=== PATIENT | female | born 1930 | race African-American/Black ===

== ENCOUNTER 2017-08-11 22:15 | Emergency (ER) | payer MEDICARE, OTHER, MEDICAID ==
--- NOTE | 2017-08-11 22:34 | ER Document Report ---
ED Neuro Symptoms/Deficit - General Mode of Arrival: Medic Information source: Patient, Relative - family members, Emergency Med Personnel Notes: Patient is an 87 year old female presenting to the emergency department with stroke like symptoms that was onset at 21:30 this evening. Patient was doing laundry at home when her family noticed she had some slurred speech, left sided facial droop, and left sided weakness. Patient had difficulty ambulating as well. Patient was brought in via EMS and sent to radiology for a CT. Patient had a clean Devunity yesterday when she went to her PCP, Dr. Currie. Patient's last PO intake was 18:00 today. Patient denies any chest pain, shortness of breath, nausea, or headache. Patient denies any recent trauma, bleeding, surgery, or fall injury. Patient denies any history of stroke or MA. Patient has hypothyroidism, depression, and anxiety. Patient takes an Aspirin daily. Patient denies any history of an irregular heart beat and states that her heart is regular. Patient has no known drug allergies. TRAVEL OUTSIDE OF THE [place] IN LAST 30 DAYS: No - HPI Patient complains to provider of: Difficulty walking, Facial Droop, Speech Impairment, Weakness Onset: This evening - 21:30, Refer to HPI notes New weakness: LUE, LLE, RLE, L facial Decreased ability to stand/walk: Difficult Impaired speech/swallowing: Difficult Similar symptoms previously: No Recently seen / treated by doctor: Yes - Viajala on 08/10/2017 <JAI FAROOQ - Last Filed: 08/12/17 00:07> <CHAPITO CUELLAR - Last Filed: 08/12/17 00:13> - General Stated Complaint: STROKE LIKE SYMPTOMS Time Seen by Provider: 08/11/17 22:16 - Related Data Allergies/Adverse Reactions: No Known Allergies Allergy (Verified 04/25/13 15:16) Past Medical History - General Information source: Patient, Relative - family members, Emergency Med Personnel - Social History Smoking Status: Never Smoker Cigarette use (# per day): No Chew tobacco use (# tins/day): No Smoking Education Provided: No Frequency of alcohol use: None Drug Abuse: None Family History: None Patient has suicidal ideation: No Patient has homicidal ideation: No - Past Medical History Cardiac Medical History: Reports: Hx Hypertension Endocrine Medical History: Reports: Hx Hypothyroidism Musculoskeltal Medical History: Reports Hx Arthritis Psychiatric Medical History: Reports: Hx Anxiety, Hx Depression Surgical Hx: Negative - Immunizations Hx Diphtheria, Pertussis, Tetanus Vaccination: Yes <JAI FAROOQ - Last Filed: 08/12/17 00:07> Review of Systems - Review of Systems Constitutional: See HPI, Weakness EENT: See HPI, Other Cardiovascular: No symptoms reported. denies: Chest pain Respiratory: No symptoms reported. denies: Short of breath Gastrointestinal: No symptoms reported. denies: Abdominal pain, Nausea Genitourinary: No symptoms reported Female Genitourinary: No symptoms reported. denies: Musculoskeletal: See HPI Skin: No symptoms reported Hematologic/Lymphatic: No symptoms reported Neurological/Psychological: See HPI, Weakness, Gait changes, Speech impairment. denies: Headaches -: Yes All other systems reviewed and negative <JAI FAROOQ - Last Filed: 08/12/17 00:07> Physical Exam - Notes Notes: GENERAL: Alert, interacts well, small amount of difficulty following commands, commands had to be repeated multiple times. No acute distress. HEAD: Normocephalic, atraumatic. EYES: Pupils equal, round, and reactive to light. Extraocular movements intact. Appears to have difficulty seeing out of the lateral aspect of the left eye. ENT: Oral mucosa moist, tongue midline. NECK: Full range of motion. Supple. Trachea midline. LUNGS: Clear to auscultation bilaterally, no wheezes, rales, or rhonchi. No respiratory distress. HEART: Regular rate. Ectopic beats every 4th beat. No murmurs, gallops, or rubs. ABDOMEN: Soft, non-tender. Non-distended. Bowel sounds present in all 4 quadrants. EXTREMITIES: Moves all 4 extremities spontaneously. 2+ pitting edema to the lower extremities bilaterally, right is slightly greater than left. Radial and dorsalis pedis pulses 2/4 bilaterally. No cyanosis. Left-sided pronator drift. Upper extremity strength is 4/5 in the left arm and 5/5 in the right arm. Weakness in the lower extremities bilaterally, 2/5 in the left leg and 3/5 in the right leg. NEUROLOGICAL: Alert and oriented x3. Normal speech. Left sided facial droop. Left sided hemianopsia. NIHSS=9. PSYCH: Normal affect, normal mood. SKIN: Warm, dry, normal turgor. No rashes or lesions noted. <JAI FAROOQ - Last Filed: 08/12/17 00:07> - Vital signs Vitals: Resp Pulse Ox 21 H 99 08/11/17 22:29 08/11/17 22:29 <CHAPIOT CUELLAR - Last Filed: 08/12/17 00:13> Course - Re-evaluation Re-evalutation: 08/11/17 22:16 Patient was quickly evaluated once brought in through the trauma bay by EMS. She is sitting up in the stretcher and has no respiratory distress. Patient is stable for CT. 08/11/17 23:15 Family agrees with plan to administer TPA and transfer patient to [facility] ED. Patient and family are aware that there is a 6% risk of intracranial hemorrhage when given TPA 08/11/17 23:52 Re-evaluated patient at this time, patient is doing well and denies any headache. Patient has some slight improvement to her left upper extremity and slight improvement to her left sided facial droop since receiving TPA. - Laboratory Result Diagrams: 08/11/17 22:44 08/11/17 22:44 - Consults [facility] Time consulted: 22:53 Reason for consultation: 08/11/17 22:53 Contacted [facility] for possible transfer and recommendations for patient, they will contact neurology and call back. 08/11/17 22:59 Call from [facility] Neurology, spoke with Dr. Johnson about patient's symptoms and CT result. Dr. Johnson recommends giving TPA and transferring the patient to [facility] (ED to ED) for further workup and treatment. 08/11/17 23:04 Transferred to the ED and spoke with Dr. Amos about patient and plan to give TPA and then transfer. Dr. Amos accepts the patient for an ED to ED transfer. 08/11/17 23:[address] Lucio who is the attending in the MICU, he was made aware of the patient. <JAI FAROOQ - Last Filed: 08/12/17 00:07> - Re-evaluation Re-evalutation: 08/12/17 00:11 CBC shows anemia with hemoglobin 10.9, platelets normal, no leukocytosis, coags normal, CMP shows slightly elevated BUN at 26 otherwise unremarkable, CK elevated 176, cardiac enzymes otherwise still pending at time of transfer, head CT does not show any acute hemorrhage, chest x-ray shows possible retrocardiac infiltrate, this is not consistent with her clinical presentation. EKG is nonischemic. Discussed initially with family the possibility of giving TPA, they asked me to first consult with neurosurgery at [facility] for possible endovascular intervention , discussed with Dr. Johnson the interventionalist on-call who states that given the presentation I am describing it does not sound like this is a blood clot in a major vessel, would recommend initiating TPA prior to transfer, recommends transfer ER to ER, spoke with Dr. Amos from the emergency department, agrees to accept the patient is an ER to ER transfer after administration of TPA. Family is aware of the 6% risk of intracranial hemorrhage and risk of with TPA. Patient and family accept this risk and request to be given TPA. They also agree with transfer to [facility] after this for further investigation of possible endovascular intervention. I did also speak with Dr. Peralta from the MICU who is aware of this patient and that they will likely be transferred to the MICU after being seen in the emergency department at [facility]. Patient was rechecked approximately 2 minutes prior to the arrival of the transport crew, symptoms had improved slightly. No evidence of worsening, blood pressure was still well controlled on its own, no headache. Patient is stable for transport at this time. - Vital Signs Vital signs: Temp Pulse Resp BP Pulse Ox 97.3 F 62 20 140/85 H 98 08/12/17 00:07 08/12/17 00:01 08/12/17 00:01 08/12/17 00:01 08/12/17 00:01 - Laboratory Result Diagrams: 08/11/17 22:44 08/11/17 22:44 Laboratory results interpreted by me: 08/11/17 08/11/17 22:44 22:44 Hgb 10.9 L Hct 34.4 L MCV 74 L MCH 23.5 L MCHC 31.8 L RDW 14.5 H Seg Neutrophils % 30.0 L Monocytes % 18.2 H Eosinophils % 11.3 H Absolute Neutrophils 1.2 L Chloride 108 H BUN 26 H Est GFR (Non-Af Amer) 50 L AST 42 H Creatine Kinase 176 H - EKG Interpretation by Me Additional EKG results interpreted by me: 08/12/17 00:12 EKG shows sinus rhythm at a rate of 67, occasional PACs, left atrial abnormality , poor R-wave progression, no ST segment elevations or depressions, there are T- wave inversions noted in lead III which are nonspecific per my interpretation. <HARMANCHAPITO HERNANDES - Last Filed: 08/12/17 00:13> Critical Care Note - Critical Care Note Total time excluding time spent on procedures (mins): 55 <CHAPITO CUELLAR - Last Filed: 08/12/17 00:13> ED Alteplase Inc/Exc Criteria - Date/Time patient last known well: Date/Time: 08/11/2017 21:30 - Date/Time patient arrived in ED: _: 08/11/2017 22:16 - Inclusion Criteria: 1: Patient presented to ED within 3 hours of acute ischemic stroke symptom onset ? -: Yes 2: Did baseline CT exclude intracranial hemorrhage and/or other risk factors? -: Yes 3: Is the age of the patient 18 years of age or greater? -: Yes : If any of the above questions are answered "NO" then stop, patient is not a candidate for Alteplase, : If all of the above questions are answered "YES" then continue with Exclusion Criteria. - Exclusion Criteria: 1: Is there evidence of intracranial hemorrhage on baseline CT? -: No 2: Is there suspicion of subarachnoid hemorrhage (even if CT negative)? -: No 3: Is there a history of serious head trauma, recent previous stroke or MA within 3 months? -: No 4: Does the patient have a clinical presentation consistent with MA or post-MA pericarditis? -: No 5: Is there history of intracranial hemorrhage? -: No 6: On repeated measurement is Systolic BP greater than 185mmHg or Diastolic BP greater that 110 mmHg and is aggressive treatment needed to reduce blood pressure to these limits (e.g. constant infusion of an anti-hypertensive)? -: No 7: Did the patient awake with stroke symptoms? -: No 8: Has the patient had a lumbar puncture or an arterial puncture at a non- compressile site within 7 days? -: No 9: With in the last 14 days did the patient have surgery or major trauma? -: No 10: Is the patient or less than 2 weeks? -: No 11: Was there any active bleeding or acute trauma? -: No 12: Does the patient have intracranial neoplasm, arteriovenous malformation or aneurysm? -: No 13: Does the patient have abnormal glucose (less than 50 or greater than 400mg/ dl)? Record glucose in Comment. -: No - 92 14: Patient has rapidly improving symptoms at the time Alteplase is to be Administered. -: No - Re-checked at 23:22 15: Does the patient have any risks for bleeding, including but not limited to: a.: Current use of Coumadin with PT greater than 15 seconds or INR greater than 1.7. b.: Current use of Pradaxa (Dabigatran). c.: Heparin administereed within the past 48 hours and PTT elevated. d.: Platelet count less than 100,000/mm. e.: Major surgery or serious trauma within 14 days. f.: Gastrointestinal or gynecological urinary bleeding within 14 days. g.: Myocardial Infarction (MA) within 3 months. -: No : If the answer to any of the above questions is "YES" then stop, the patient is not a candidate for Alteplase. : If the answer to all of the above questions is "NO" then the patient may be eligible for the Administration of Alteplase. : If the patient is noted to have seizure activity at onset of Stroke symptoms; Consult Neurologist for further evaluation. - The patient is: -: Included and is eligible to receive Alteplase. *Initiate bed placement at higher level of care* --: Yes Reviewd risks & benefits of thrombolytic therapy: I have reviewed the risks and benefits of thrombolytic therapy with the patient and/or his/her family. Yes - 6% risk of ICH, ED to ED transfer to [facility] -: Excluded and not eligible to receive Alteplase for the above exclusions. -: Excluded and not eligible to receive Alteplase for other reasons (specify in comments): <JAI FAROOQ - Last Filed: 08/12/17 00:07> ED NIH Stroke Scale - NIH Stroke Scale When completed:: Protocol *: 1. NIH scale should be completed with appropriate accompanying assessment tools. *: 2. The NIH should reflect what the patient is capable of doing and should not be coached by the clinician. 1a. Level of Consciousness: 0=Alert;keenly responsive -: 1=Drowsy -: 2=Obtunded -: 3=Coma/unresponsive or reflex to noxious stimuli. 1a. Responses: 0 1b. Orientation Questions: a. What month is it? -: b. How old are you? -: 0=Answers both questions correctly. -: 1=Answers one question correctly or patient is intubated or has orotracheal trauma. -: 2=Answers neither question correctly. 1b. Responses: 0 1c. Response to commands: a. Open and close eyes? -: b. Rf Engineer and release hand? -: Credit is given despite weakness. Demonstration of task is permitted. Substitute command if hands cannot be used. -: 0=Performs both tasks correctly -: 1=Performs one task correctly -: 2=Performs neither task correctly 1c. Responses: 0 2. Gaze: Establish eye contact and instruct patient to "Follow my finger" -: 0=Normal -: 1=Partial gaze palsy. Gaze is abnormal in one or both eyes, but where forced deviation or total gaze paresis is not present. -: 2=Forced deviation or total gaze paresis. 2. Responses: 0 3. Visual Watts: Sees fingers in all four quadrants. -: 0=No visual loss. -: 1=Partial hemianopsia. -: 2=Complete hemianopsia. -: 3=Bilateral hemianopsia (including Cortical blindness) 3. Responses: 1 4. Facial Movement: Instruct patient to: -: a. Show me your teeth -: b. Raise your eyebrows -: c. Close your eyes -: d. Smile -: 0=Normal symmetrical movement -: 1=Minor paralysis (flattened nasolabial fold, asymmetry on smiling). -: 2=Partial paralysis (total or near total paralysis of lower face). -: 3=Complete paralysis of upper and lower face 4. Responses: 1 5. Motor functions (left arm): Alternate sides and extend each arm with palms down (90 degrees if sitting or 45 degrees for supine). -: 0=No drift;limb holds for full 10 seconds. -: 1=Drift; limb holds but drifts down before full 10 seconds, but does not hit bed. -: 2=Some effort against gravity; limb cannot get to or maintain position. -: 3=No effort against gravity; limb falls. -: 4=No movement. -: UN=Amputation, joint fusion, explain in comments. 5. Responses (left arm): 1 5. Motor Functions (right arm): Alternate sides and extend each arm with palms down (90 degrees if sitting or 45 degrees for supine). -: 0=No drift;limb holds for full 10 seconds. -: 1=Drift; limb holds but drifts down before full 10 seconds, but does not hit bed. -: 2=Some effort against gravity; limb cannot get to or maintain position. -: 3=No effort against gravity; limb falls. -: 4=No movement. -: UN=Amputation, joint fusion, explain in comments. 5. Responses (right arm): 0 6. Motor Functions (left leg): With patient lying supine, alternate sides and extend each leg (30 degrees always while supine). -: 0=No drift, leg holds position for full 5 seconds -: 1=Drift; leg falls before full 5 seconds but does not hit bed. -: 2=Some effort against gravity, leg falls to bed but some effort against gravity. -: 3=No effort against gravity, leg falls to bed immediately. -: 4=No movement. -: UN=Amputation, joint fusion; explain in comments. 6. Responses (left leg): 3 6. Motor Functions (right leg): With patient lying supine, alternate sides and extend each leg (30 degrees always while supine). -: 0=No drift, leg holds position for full 5 seconds -: 1=Drift; leg falls before full 5 seconds but does not hit bed. -: 2=Some effort against gravity, leg falls to bed but some effort against gravity. -: 3=No effort against gravity, leg falls to bed immediately. -: 4=No movement. -: UN=Amputation, joint fusion; explain in comments. 6. Responses (right leg): 2 7. Limb Ataxia: With eyes open instruct patient to: -: a. "Touch your finger to your nose". -: b. "Touch your heel to your goff" -: 0=Absent -: 1=Present in one limb. -: 2=Present in two limbs. -: UN=Amputation or joint fusion; explain in comments. 7. Responses: 0 8. Sensory: Test sensation using pinprick or noxious stimuli. Test as many body parts as possible. -: 0=Normal;no sensory loss -: 1=Mile to moderate sensory loss (patient feels pin prick but is less sharp on affected side). -: 2=Severe or total sensory loss. 8. Responses: 0 9. Best Language: Instruct patient to: -: a. "Describe what you see in this picture." -: b. "Name the items in this picture." -: c. "Read these sentences." -: 0=No aphasia, normal -: 1=Mild to moderate aphasia. -: 2=Severe aphasia -: 3=Mute, global aphasia, no usable speech or auditory comprehension. 9. Responses: 0 10. Articulation, Dysarthia: Instruct patient to: -: "Read these words" or "Repeat these words" -: 0=Normal -: 1=Mild to moderate; patient may slur some words but can be understood without difficulty. -: 2=Severe; patients speech so slurred as to be unintelligible in the absence of dysphasia. -: UN=Intubated or other physical barrier, explain in comments. 10. Responses: 0 11. Extinction or inattention: 0=No abnormality -: 1= Visual, tactile, auditory, spatial, or personal inattention or extinction to bilateral simulation in one or the sensory modalities. -: 2=Profound ricardo-inattention or ricardo-inattention to more than one modality; does not recognize own hand. 11. Responses: 1 Total Score: 9 <JAI FAROOQ - Last Filed: 08/12/17 00:07> Discharge <JAI FAROOQ - Last Filed: 08/12/17 00:07> - Discharge Scribe Attestation: 08/12/17 00:13 I personally performed the services described in the documentation, reviewed and edited the documentation which was dictated to the scribe in my presence, and it accurately records my words and actions. <CHAPITO CUELLAR - Last Filed: 08/12/17 00:13> - Discharge Clinical Impression: Acute ischemic stroke Hypertension Qualifiers: Hypertension type: unspecified Qualified Code(s): I10 - Essential (primary) hypertension Anemia Qualifiers: Anemia type: unspecified type Qualified Code(s): D64.9 - Anemia, unspecified Condition: Fair Disposition: [facility] Scribe Documentation - Scribe Written by Scribe:: Sunitha Polanco 08/11/2017 10:30 acting as scribe for :: Brianna <JAI FAROOQ - Last Filed: 08/12/17 00:07>
--- NOTE | 2017-08-11 22:39 | RADIOLOGY REPORT (SQ) ---
EXAM DESCRIPTION: CT HEAD WITHOUT COMPLETED DATE/TIME: 08/11/2017 10:30 pm REASON FOR STUDY: stroke alert COMPARISON: None. TECHNIQUE: Axial images acquired through the brain without intravenous contrast. Images reviewed wi th bone, brain and subdural windows. Images stored on PACS. All CT scanners at this facility use dose modulation, iterative reconstruction, and/or weight based d osing when appropriate to reduce radiation dose to as low as reasonably achievable (ALARA). [facility]: Dose Right [facility]: CareDose [facility]: Dose Right [facility]: Teradose 4D [facility]: Social Media Simplified RADIATION DOSE: mGy. LIMITATIONS: None. FINDINGS: VENTRICLES: Prominent. CEREBRUM: No masses. No hemorrhage. No midline shift. Areas of low density in the white matter mos t likely due to chronic micro-vascular ischemic change. No evidence for acute infarction. CEREBELLUM: No masses. No hemorrhage. No alteration of density. No evidence for acute infarction. EXTRAAXIAL SPACES: Mild age-related involutional change. No fluid collections. No masses. ORBITS AND GLOBE: No intra- or extraconal masses. Normal contour of globe without masses. CALVARIUM: No fracture. PARANASAL SINUSES: No fluid or mucosal thickening. SOFT TISSUES: No mass or hematoma. OTHER: No other significant finding. IMPRESSION: MILD CHRONIC CHANGES OF ATROPHY AND MICROVASCULAR ISCHEMIA. NO CT EVIDENCE OF ACUTE ISC HEMIA, HEMORRHAGE, OR MASS LESION. . EVIDENCE OF ACUTE STROKE: NO. COMMENT: Pertinent positive or negative findings of the imaging study reported as a CRITICAL EXAM carmelina noelle URIARTE ALISA GOLDBERG at22:32 on 08/11/2017. Category of Critical Exam: STROKE ALERT TECHNICAL DOCUMENTATION: JOB ID: [id number] Quality ID # [id number]: Final reports with documentation of one or more dose reduction techniques (e.g., Au tomated exposure control, adjustment of the mA and/or kV according to patient size, use of iterative reconstruction technique) 2010 [employer]- All Rights Reserved
[2017-08-11] MEDS ORDERED: ALTEPLASE INJ 100 MG VIAL IV ONE (23:02)
[2017-08-11 23:06] LABS: ABSOLUTE EOSINOPHILS # (AUTO) 0.5 10^3/uL (0.0-0.6); ABSOLUTE LYMPHOCYTES (AUTO) 1.6 10^3/uL (0.5-4.7); ABSOLUTE MONOCYTES (AUTO) 0.7 10^3/uL (0.1-1.4); ABSOLUTE NEUT (AUTO) 1.2 10^3/uL (1.7-8.2); BASOPHILS % (AUTO) 0.7 % (0-2); EOSINOPHILS % (AUTO) 11.3 % (0-6); HEMATOCRIT 34.4 % (36.0-47.0); HEMOGLOBIN 10.9 g/dL (12.0-15.5); HGB HCT DIFFERENCE -1.7; LYMPHOCYTES % (AUTO) 39.8 % (13-45); MEAN CORPUSCULAR HEMOGLOBIN 23.5 pg (27.0-33.4); MEAN CORPUSCULAR HGB CONC 31.8 g/dL (32.0-36.0); MEAN CORPUSCULAR VOLUME 74 fl (80-97); MONOCYTES % (AUTO) 18.2 % (3-13); RED BLOOD COUNT 4.65 10^6/uL (3.72-5.28); RED CELL DISTRIBUTION WIDTH 14.5 % (11.5-14.0); WHITE BLOOD COUNT 4.1 10^3/uL (4.0-10.5)
--- NOTE | 2017-08-11 23:06 | RADIOLOGY REPORT (SQ) ---
EXAM DESCRIPTION: CHEST SINGLE VIEW COMPLETED DATE/TIME: 08/11/2017 10:58 pm REASON FOR STUDY: stroke alert COMPARISON: April 2013 NUMBER OF VIEWS: One view. TECHNIQUE: Single frontal radiographic view of the chest acquired. LIMITATIONS: None. FINDINGS: LUNGS AND PLEURA: Low lung volumes. Question retrocardiac airspace disease. Pleural spac es are clear. MEDIASTINUM AND HILAR STRUCTURES: No masses. No contour abnormality. HEART AND VASCULAR STRUCTURES: Normal size. No evidence for failure. BONES: No acute findings. HARDWARE: None in the chest. OTHER: No other significant finding. IMPRESSION: QUESTION RETROCARDIAC AIRSPACE DISEASE WHICH COULD REPRESENT PNEUMONIA. RECOMMEND CORRE LATION WITH RESPIRATORY SYMPTOMS. TECHNICAL DOCUMENTATION: JOB ID: [id number] [employer]- All Rights Reserved
[2017-08-11 23:15] LABS: ALANINE AMINOTRANSFERASE 32 U/L (9-52); ALKALINE PHOSPHATASE 85 U/L (38-126); ANION GAP 10 (5-19); ASPARTATE AMINO TRANSFERASE 42 U/L (14-36); BILIRUBIN,DIRECT 0.4 mg/dL (0.0-0.4); BILIRUBIN,TOTAL 0.4 mg/dL (0.2-1.3); BLOOD UREA NITROGEN 26 mg/dL (7-20); CALCIUM 9.7 mg/dL (8.4-10.2); CARBON DIOXIDE 24 mmol/L (22-30); CHLORIDE 108 mmol/L (98-107); CREATINE KINASE 176 U/L (30-135); CREATININE RESULT 1.05 mg/dL (0.52-1.25); GLUCOSE 90 mg/dL (75-110); POTASSIUM 4.5 mmol/L (3.6-5.0); SODIUM 142.1 mmol/L (137-145); TOTAL PROTEIN 7.6 g/dL (6.3-8.2)
[2017-08-11 23:30] LABS: PARTIAL THROMBOPLASTIN TIME 26.2 SEC (23.5-35.8)
[2017-08-11 23:32] LABS: PROTHROMBIN TIME 12.7 SEC (11.4-15.4)
[2017-08-11 23:58] VITALS: BP 140/85
[2017-08-12 00:04] LABS: CREATINE KINASE MB 2.21 ng/mL (<4.55)
[2017-08-12 00:09] LABS: TROPONIN I 0.353 ng/mL
--- NOTE | 2017-08-12 06:17 | EKG REPORT ---
SEVERITY:- BORDERLINE ECG - SINUS RHYTHM ATRIAL PREMATURE COMPLEX PROBABLE LEFT ATRIAL ABNORMALITY CONSIDER ANTERIOR INFARCT : Confirmed by: Bienvenido Riley MD 12-Aug-2017 06:16:13
== END 2017-08-12 00:02 | disposition short-term general hospital (02) ==
LOC: ER 22:15
DX: I63.9 Cerebral infarction, unspecified (principal); R29.810 Facial weakness; R47.81 Slurred speech; G81.94 Hemiplegia, unspecified affecting left nondominant side; I10 Essential (primary) hypertension; D64.9 Anemia, unspecified; R60.0 Localized edema; I49.49 Other premature depolarization; E03.9 Hypothyroidism, unspecified; F32.9 Major depressive disorder, single episode, unspecified; F41.9 Anxiety disorder, unspecified; Z79.82 Long term (current) use of aspirin
CPT/HCPCS: 93005; 99291; 96365; 36415; 82553; 82962; 82550; 85025; 85610; 85730; 80053; 84484; 71010; 70450; 93010; J2997